=== PATIENT | male | born 1985 | race Caucasian/White ===

== ENCOUNTER 2025-01-16 12:39 | Emergency (ER) | payer OTHER ==
[~2025-01-16] VITALS: Ht 188 cm; Wt 91.0 kg
[2025-01-16 12:45] VITALS: O2SAT 99
[2025-01-16] MEDS: HYDROCODONE/ACETAMINOPHEN 5/325MG TABLET PO ONE (13:25)
[2025-01-16] MEDS: KETOROLAC 30MG/ML VIAL IM ONE (13:26)
[2025-01-16 13:49] LABS: BASOPHILS % 0.3 % (0.0-2.0); EOSINOPHILS % 1.1 % (0.0-5.0); HEMATOCRIT. 45.4 % (42.0-52.0); HEMOGLOBIN. 15.5 g/dL (14.0-18.0); LYMPHOCYTES % 29.6 % (20.0-50.0); MEAN PLATELET VOLUME 8.1 fl (7.4-10.4); MONOCYTES % 9.1 % (2.0-8.0); NEUTROPHILS % 59.9 % (40.0-76.0); PLATELET 130 x1000/uL (130-400); RED BLOOD CELL COUNT 5.10 mill/uL (4.7-6.1); RED CELL DISTRIBUTION WIDTH 13.5 % (11.6-14.6)
[2025-01-16 14:13] LABS: CREATININE 1.1 mg/dL (0.6-1.3); UREA NITROGEN BLOOD 12 mg/dL (9-23)
[2025-01-16 14:32] LABS: ERYTHROCYTE SEDIMENTATION RATE 1 mm/hr (0-15)
[2025-01-16] MEDS ORDERED: AMOX1TAB16 MT (14:35)
[2025-01-16 14:41] VITALS: BP 138/88; PULSE 88; RESP 16; TEMP 36.8; O2SAT 99
== END 2025-01-16 14:43 | disposition home or self-care (01) ==
LOC: ER 12:39
DX: R51.9 Headache, unspecified (principal); M45.9 Ankylosing spondylitis of unspecified sites in spine; Z98.1 Arthrodesis status; Z90.49 Acquired absence of other specified parts of digestive tract; Z98.890 Other specified postprocedural states
CPT/HCPCS: 99285; 70450; 80048; 85025; 85651; 36415; 70486; 96372; J1885